=== PATIENT | female | born 1970 | race Caucasian/White ===

== ENCOUNTER 2019-12-16 23:26 | Emergency (ER) | payer MEDICAID, OTHER ==
[~2019-12-16] VITALS: Ht 157.5 cm; Wt 77.3 kg
[~2019-12-16 23:26] MED LIST: ALBU6.7H9 INH; DIAZ5TAB PO; IBUP-1984 PO; IBUP-1986 PO; PHEN-786 PO
[2019-12-16] MEDS ORDERED: ibuprofen tablet 400 MG TABLET PO ONE (23:40)
[2019-12-16] MEDS ORDERED: acetaminophen 325mg tablet PO ONE (23:40)
[2019-12-17 00:15] VITALS: BP 130/77
== END 2019-12-17 00:18 | disposition home or self-care (01) ==
LOC: ER 23:26
DX: J06.9 Acute upper respiratory infection, unspecified (principal); F17.200 Nicotine dependence, unspecified, uncomplicated; Z87.59 Personal history of other complications of pregnancy, childbirth and the puerperium; Z98.51 Tubal ligation status; Z79.899 Other long term (current) drug therapy
CPT/HCPCS: 71045; 93005; 99284

== ENCOUNTER 2020-05-04 12:35 | Emergency (ER) | payer MEDICAID ==
[~2020-05-04] VITALS: Ht 157.5 cm; Wt 77.3 kg
[2020-05-04 12:40] VITALS: BP 174/90
== END 2020-05-04 15:35 | disposition home or self-care (01) ==
LOC: ER 12:36
DX: M79.601 Pain in right arm (principal); M25.511 Pain in right shoulder; Z98.51 Tubal ligation status; Z98.890 Other specified postprocedural states; Z79.899 Other long term (current) drug therapy; W19.XXXA Unspecified fall, initial encounter; Y93.89 Activity, other specified; Y92.89 Other specified places as the place of occurrence of the external cause; Y99.8 Other external cause status
CPT/HCPCS: 73060; 73090; 99284

== ENCOUNTER 2022-02-26 09:16 | Inpatient (IN) | payer BC, MEDICAID ==
[~2022-02-26] VITALS: Ht 157.5 cm; Wt 72.7 kg
[2022-02-26] MEDS ORDERED: normal saline 1000ML IV soln IV ONE (09:50)
[2022-02-26] MEDS ORDERED: methylPREDNISolone sod succ 125mg/2ml vial IV ONE (09:50)
[2022-02-26] MEDS ORDERED: azithromycin/NS 500mg/250ml 250 ML IV ONE (09:50)
[2022-02-26] MEDS ORDERED: CefTRIAXone 2gm/NS 100ml IVPB 100 ML IV ONE (09:50)
[2022-02-26] MEDS ORDERED: ipratropium/albuterol 3ml nebule NEB ONE (09:50)
[2022-02-26] MEDS ORDERED: aspirin 81mg tab.chew PO ONE (09:50)
[2022-02-26 10:05] LABS: BASOPHILS % (AUTO) 0.4 % (0-1); EOSINOPHILS % (AUTO) 0.4 % (0-6); HEMATOCRIT 51.7 % (35.0-45.0); LYMPHOCYTES # (AUTO) 2.5 X10'3 (1.1-4.8); LYMPHOCYTES % (AUTO) 30.3 % (21-51); MEAN CORPUSCULAR HEMOGLOBIN 31.2 PG (27.0-31.0); MEAN CORPUSCULAR HGB CONC 35.1 g/dL (33.0-36.5); MEAN CORPUSCULAR VOLUME 88.8 FL (78-98); MEAN PLATELET VOLUME 7.5 FL (7.4-10.4); MONOCYTES # (AUTO) 0.5 X10'3 (0-0.9); MONOCYTES % (AUTO) 6.5 % (2-12); NEUTROPHILS # (AUTO) 5.2 X10'3 (1.8-7.7); NEUTROPHILS % (AUTO) 62.4 % (42-75); PLATELET COUNT 361 X10'3 (140-440); RED BLOOD COUNT 5.82 X10'6 (4.20-5.60); RED CELL DISTRIBUTION WIDTH 13.5 % (11.5-14.5); WHITE BLOOD COUNT 8.3 X10'3 (4.5-11.0)
[2022-02-26 10:06] LABS: HEMOGLOBIN 18.1 g/dl (12.0-16.0)
--- NOTE | 2022-02-26 10:17 | NUR ---
PATIENT IS HESITANT TO HAVE IV STARTED AND MEDICATIONS ORDERED PER PROVIDER. PATIENT STATES SHE DOES NOT THINK SHE NEEDS THESE MEDICATIONS AND DOES NOT BELIEVE THAT HER PROBLEM IS FROM COVID. PROVIDER WILL BE NOTIFIED OF PATIENT CONCERNS.
[2022-02-26 10:22] LABS: ALANINE AMINOTRANSFERASE 24 U/L (12-78); ALBUMIN 3.8 G/DL (3.4-5.0); ALBUMIN/GLOBULIN RATIO 1.1 (1.1-1.5); ALKALINE PHOSPHATASE 78 IU/L (46-116); ANION GAP 12 (8-16); ASPARTATE AMINO TRANSFERASE 24 U/L (10-37); BILIRUBIN,TOTAL 0.9 MG/DL (0.1-1.0); BLOOD UREA NITROGEN 15 MG/DL (7-18); BUN/CREATININE RATIO 20.5 (6.6-38.0); CHLORIDE 98 MMOL/L (99-107); CREATININE 0.73 MG/DL (0.40-0.90); GLUCOSE 108 MG/DL (70-104); POTASSIUM 3.9 MMOL/L (3.5-5.1); SODIUM 134 MMOL/L (135-145); TOTAL CARBON DIOXIDE 24.3 MMOL/L (24-32); TOTAL PROTEIN 7.3 G/DL (6.4-8.2); eGFR 84 ML/MIN
[2022-02-26] MEDS ORDERED: enoxaparin 100mg/ml syringe SUBCUT ONE (10:40)
[2022-02-26] MEDS ORDERED: nicotine 14mg patch - 24hr TD ONE (10:40)
[2022-02-26] MEDS ORDERED: LORazepam 1 MG tablet PO ONE (10:40)
[2022-02-26 10:46] LABS: D-DIMER 0.31 MG/L FEU (0-0.50)
[2022-02-26] MEDS ORDERED: ipratropium/albuterol 3ml nebule NEB PRN ×2 (11:05)
[2022-02-26] MEDS ORDERED: magnesium 4gm in 100ml NS 100 ML IV PRN (11:05)
[2022-02-26] MEDS ORDERED: acetaminophen 325mg tablet PO PRN (11:05)
[2022-02-26] MEDS ORDERED: POTASSIUM BICARB 20meq eff tab 20 MEQ TABLET.EFF PO PRN ×2 (11:05)
[2022-02-26] MEDS ORDERED: magnesium 2GM in 50ml NS 50 ML IV PRN (11:05)
[2022-02-26] MEDS ORDERED: magnesium Cl slow-release 64mg tablet PO PRN (11:05)
[2022-02-26] MEDS ORDERED: potassium CL 10mEq/100ml bag 100 ML IV PRN (11:05)
--- NOTE | 2022-02-26 11:20 | NUR ---
ATTEMPT TO START IV X 1 UNSUCCESSFUL. PATIENT IS VERY ANXIOUS AND NOT TOLERATING PROCEDURE WELL.
[2022-02-26 11:31] LABS: MAGNESIUM 1.9 MG/DL (1.5-2.4)
[2022-02-26] MEDS ORDERED: iohexol 350MG/ML 100ml bottle IV ONE (11:31)
[2022-02-26] MEDS ORDERED: LISI20TA28 PO (13:47)
[2022-02-26] MEDS ORDERED: HYDR25TA5 PO (13:47)
[2022-02-26] MEDS ORDERED: ALBU8.5H17 INH (13:49)
[2022-02-26] MEDS ORDERED: IBUP-1985 PO (13:53)
--- NOTE | 2022-02-26 14:34 | NUR ---
paged dr martin for trop level 95 ,which is trending down.
[2022-02-26] MEDS ORDERED: ALBUTEROL INHALER 1 PUFF/90 MCG INHALation IH PRN (15:15)
[2022-02-26] MEDS ORDERED: albuterol 2.5 MG/3 ML nebule NEB PRN (15:21)
--- NOTE | 2022-02-26 15:55 | NUR ---
Patient in room ED 6. I have received report from Sara DISLA and had the opportunity to ask questions and assume patient care.
[2022-02-26] MEDS: lisinopril 20mg tablet PO SCH (16:13)
--- NOTE | 2022-02-26 16:56 | NUR ---
patient very anxious Dr martin paged with regards anxiety meds.will continue to monitor
[2022-02-26 17:06] VITALS: BP 124/62
[2022-02-26] MEDS: ibuprofen 200mg tablet PO SCH (17:30)
[2022-02-26 18:00] VITALS: BP 135/71
--- NOTE | 2022-02-26 18:38 | NUR ---
Dr martin ordered anxiety meds. RT paged with regards tmt for patient. report given to Robert DISLA
[2022-02-26] MEDS: K and/or MAG REPLACEMENT MC SCH (18:58)
[2022-02-26] MEDS ORDERED: benzonatate 100mg capsule PO PRN (19:20)
--- NOTE | 2022-02-26 19:20 | NUR ---
Pt complained of cough, requested cough medication. Dr. Barrios paged and order for cough obtained.
[2022-02-26] MEDS: docusate sod 100mg capsule PO SCH (19:44)
[2022-02-26] MEDS: LORazepam 0.5 MG tablet PO PRN (19:46)
[2022-02-26] MEDS: heparin, porcine 5000 units/ml vial SQ SCH (19:49)
[2022-02-26 22:00] VITALS: BP 115/62
[2022-02-27 02:00] VITALS: BP 117/62
[2022-02-27] MEDS: HYDROcodone/acetaminophen 5mg/325mg tablet PO PRN ×2 (02:46→14:31)
[2022-02-27 06:00] VITALS: BP 144/78
[2022-02-27 06:23] LABS: BASOPHILS # (AUTO) 0.1 X10'3 (0-0.2); BASOPHILS % (AUTO) 0.6 % (0-1); EOSINOPHILS % (AUTO) 0 % (0-6); HEMATOCRIT 41.9 % (35.0-45.0); HEMOGLOBIN 14.8 g/dl (12.0-16.0); LYMPHOCYTES # (AUTO) 1.2 X10'3 (1.1-4.8); LYMPHOCYTES % (AUTO) 8.6 % (21-51); MEAN CORPUSCULAR HEMOGLOBIN 31.2 PG (27.0-31.0); MEAN CORPUSCULAR HGB CONC 35.3 g/dL (33.0-36.5); MEAN CORPUSCULAR VOLUME 88.3 FL (78-98); MEAN PLATELET VOLUME 8.2 FL (7.4-10.4); MONOCYTES # (AUTO) 0.4 X10'3 (0-0.9); NEUTROPHILS # (AUTO) 11.9 X10'3 (1.8-7.7); NEUTROPHILS % (AUTO) 87.8 % (42-75); PLATELET COUNT 338 X10'3 (140-440); RED BLOOD COUNT 4.74 X10'6 (4.20-5.60); RED CELL DISTRIBUTION WIDTH 13.2 % (11.5-14.5); WHITE BLOOD COUNT 13.6 X10'3 (4.5-11.0)
--- NOTE | 2022-02-27 06:31 | NUR ---
Patient in room PCU 3026. I have received report from Will RN and had the opportunity to ask questions and assume patient care.
[2022-02-27 07:28] LABS: ALBUMIN 3.1 G/DL (3.4-5.0); ANION GAP 8 (8-16); BLOOD UREA NITROGEN 15 MG/DL (7-18); BUN/CREATININE RATIO 20.5 (6.6-38.0); CALCIUM 8.5 MG/DL (8.5-10.1); CHLORIDE 105 MMOL/L (99-107); CREATININE 0.73 MG/DL (0.40-0.90); GLUCOSE 122 MG/DL (70-104); POTASSIUM 3.7 MMOL/L (3.5-5.1); SODIUM 137 MMOL/L (135-145); TOTAL CARBON DIOXIDE 24.1 MMOL/L (24-32); eGFR 84 ML/MIN
[2022-02-27] MEDS: K and/or MAG REPLACEMENT MC SCH ×2 (08:00→20:03)
[2022-02-27] MEDS: docusate sod 100mg capsule PO SCH ×2 (08:00→20:02)
[2022-02-27] MEDS: LORazepam 0.5 MG tablet PO PRN ×2 (08:34→20:02)
[2022-02-27] MEDS: ibuprofen 200mg tablet PO SCH ×3 (08:34→18:00)
[2022-02-27] MEDS: lisinopril 20mg tablet PO SCH (08:35)
[2022-02-27] MEDS: heparin, porcine 5000 units/ml vial SQ SCH (08:36)
[2022-02-27] MEDS ORDERED: PERFLUTREN PROTEIN-A MICROSPHR (Optison) 0.22 MG/ML 3ML VIAL IV ONE (08:55)
[2022-02-27] MEDS ORDERED: regadenoson 0.4mg/5ml syringe IV PRN (08:55)
[2022-02-27] MEDS ORDERED: nitroGLYCERIN 0.4mg SUBLingual tab SL PRN (08:55)
[2022-02-27] MEDS ORDERED: metoprolol tartrate 1mg/ml inj IV PRN (08:55)
[2022-02-27] MEDS ORDERED: aminophylline 250mg/10ml inj. IV PRN (08:55)
--- NOTE | 2022-02-27 09:19 | NUR ---
Malnutrition consult: Pt w/ recent Covid hx 2 weeks ago, reports a decrease in appetite since then per EMR. Current wt not scaled though wt hx fluctuates in EMR, going as low as 62kg in 2013. No signs of muscle or fat wasting observed at bedside. No edema noted and pt w/ normal muscle strength per documentation. Currently on heart Healthy diet pending PO intake. At this time, pt does not meet minimum criteria for malnutrition. Addendum: 02/27/22 at [address] Amended: Links added.
[2022-02-27 11:00] VITALS: BP 113/73
[2022-02-27] MEDS ORDERED: cefTRIAXone 1g/NS 100ml IVPB 100 ML IV ONE (13:35)
--- NOTE | 2022-02-27 13:35 | NUR ---
paged Dr kay with regards Aerobic bottle 02/26 left arm gram positive cocci in clusters
[2022-02-27 15:00] VITALS: BP 110/65
[2022-02-27 18:00] VITALS: BP 109/76
--- NOTE | 2022-02-27 18:53 | NUR ---
patient appears stable. Family visiting . Is for michael scan at 1400hrs tomorrow. report given to Robert DISLA
[2022-02-27] MEDS: enoxaparin 80mg/0.8ml syringe SUBCUT SCH (20:02)
[2022-02-28] VITALS (9 sets, daily range): BP systolic 130–149; BP diastolic 71–94
[2022-02-28 06:11] LABS: HEMOGLOBIN 14.4 g/dl (12.0-16.0); MEAN PLATELET VOLUME 8.1 FL (7.4-10.4); RED BLOOD COUNT 4.73 X10'6 (4.20-5.60)
[2022-02-28 06:14] LABS: BASOPHILS # (AUTO) 0.1 X10'3 (0-0.2); BASOPHILS % (AUTO) 0.8 % (0-1); EOSINOPHILS % (AUTO) 0.2 % (0-6); HEMATOCRIT 42.4 % (35.0-45.0); LYMPHOCYTES % (AUTO) 34.8 % (21-51); MEAN CORPUSCULAR HEMOGLOBIN 30.5 PG (27.0-31.0); MEAN CORPUSCULAR VOLUME 89.6 FL (78-98); MONOCYTES # (AUTO) 0.4 X10'3 (0-0.9); MONOCYTES % (AUTO) 4.7 % (2-12); NEUTROPHILS # (AUTO) 5.1 X10'3 (1.8-7.7); NEUTROPHILS % (AUTO) 59.5 % (42-75); PLATELET COUNT 304 X10'3 (140-440); RED CELL DISTRIBUTION WIDTH 13.7 % (11.5-14.5); WHITE BLOOD COUNT 8.6 X10'3 (4.5-11.0)
[2022-02-28 06:19] LABS: ALBUMIN 2.8 G/DL (3.4-5.0); ANION GAP 4 (8-16); BLOOD UREA NITROGEN 14 MG/DL (7-18); BUN/CREATININE RATIO 17.9 (6.6-38.0); CALCIUM 8.1 MG/DL (8.5-10.1); CHLORIDE 108 MMOL/L (99-107); CREATININE 0.78 MG/DL (0.40-0.90); GLUCOSE 80 MG/DL (70-104); POTASSIUM 3.7 MMOL/L (3.5-5.1); SODIUM 140 MMOL/L (135-145); TOTAL CARBON DIOXIDE 28.1 MMOL/L (24-32); eGFR 78 ML/MIN
[2022-02-28] MEDS: K and/or MAG REPLACEMENT MC SCH ×2 (08:00→20:00)
[2022-02-28] MEDS ORDERED: regadenoson 0.4mg/5ml syringe IV PRN (09:35)
[2022-02-28] MEDS ORDERED: metoprolol tartrate 1mg/ml inj IV PRN (09:35)
[2022-02-28] MEDS ORDERED: iohexol 350MG/ML 100ml bottle IV ONE (09:40)
[2022-02-28] MEDS ORDERED: nitroGLYCERIN 0.4mg SUBLingual tab SL PRN (09:40)
[2022-02-28] MEDS: ibuprofen 200mg tablet PO SCH ×3 (11:03→17:37)
[2022-02-28] MEDS: docusate sod 100mg capsule PO SCH ×2 (11:03→19:12)
[2022-02-28] MEDS: lisinopril 20mg tablet PO SCH (11:05)
[2022-02-28] MEDS: enoxaparin 80mg/0.8ml syringe SUBCUT SCH ×2 (11:07→19:12)
[2022-02-28] MEDS: cefTRIAXone 1g/NS 100ml IVPB 100 ML IV SCH (11:08)
[2022-02-28] MEDS: HYDROcodone/acetaminophen 5mg/325mg tablet PO PRN ×2 (11:22→19:11)
[2022-02-28] MEDS: LORazepam 0.5 MG tablet PO PRN (17:37)
[2022-03-01 06:00] VITALS: BP 130/83
--- NOTE | 2022-03-01 06:35 | NUR ---
Patient in room PCU 3026. I have received report from NIGHAT Morton and had the opportunity to ask questions and assume patient care.
[2022-03-01 06:45] LABS: BASOPHILS # (AUTO) 0.1 X10'3 (0-0.2); BASOPHILS % (AUTO) 1.1 % (0-1); EOSINOPHILS # (AUTO) 0.1 X10'3 (0-0.9); HEMATOCRIT 41.6 % (35.0-45.0); HEMOGLOBIN 14.3 g/dl (12.0-16.0); LYMPHOCYTES # (AUTO) 2.8 X10'3 (1.1-4.8); LYMPHOCYTES % (AUTO) 43.3 % (21-51); MEAN CORPUSCULAR HGB CONC 34.3 g/dL (33.0-36.5); MEAN CORPUSCULAR VOLUME 90.3 FL (78-98); MEAN PLATELET VOLUME 8.3 FL (7.4-10.4); MONOCYTES # (AUTO) 0.4 X10'3 (0-0.9); MONOCYTES % (AUTO) 6.1 % (2-12); NEUTROPHILS # (AUTO) 3.1 X10'3 (1.8-7.7); NEUTROPHILS % (AUTO) 48.5 % (42-75); PLATELET COUNT 307 X10'3 (140-440); RED BLOOD COUNT 4.61 X10'6 (4.20-5.60); RED CELL DISTRIBUTION WIDTH 13.3 % (11.5-14.5); WHITE BLOOD COUNT 6.5 X10'3 (4.5-11.0)
[2022-03-01 06:56] LABS: ALBUMIN 2.7 G/DL (3.4-5.0); ANION GAP 10 (8-16); BLOOD UREA NITROGEN 20 MG/DL (7-18); BUN/CREATININE RATIO 28.2 (6.6-38.0); CALCIUM 8.2 MG/DL (8.5-10.1); CHLORIDE 106 MMOL/L (99-107); CREATININE 0.71 MG/DL (0.40-0.90); GLUCOSE 74 MG/DL (70-104); SODIUM 145 MMOL/L (135-145); TOTAL CARBON DIOXIDE 28.6 MMOL/L (24-32); eGFR 86 ML/MIN
[2022-03-01] MEDS: ibuprofen 200mg tablet PO SCH ×2 (08:00→12:56)
[2022-03-01] MEDS: K and/or MAG REPLACEMENT MC SCH (08:00)
[2022-03-01 10:00] VITALS: BP 140/83
[2022-03-01 10:55] VITALS: BP_SYST 130
[2022-03-01] MEDS: lisinopril 20mg tablet PO SCH (10:55)
[2022-03-01] MEDS: cefTRIAXone 1g/NS 100ml IVPB 100 ML IV SCH (10:55)
[2022-03-01] MEDS: docusate sod 100mg capsule PO SCH (10:56)
[2022-03-01] MEDS: enoxaparin 80mg/0.8ml syringe SUBCUT SCH (10:56)
[2022-03-01] MEDS ORDERED: LORA-268 MT (10:59)
[2022-03-01] MEDS: LORazepam 0.5 MG tablet PO PRN (11:01)
[2022-03-01] MEDS: HYDROcodone/acetaminophen 5mg/325mg tablet PO PRN (11:02)
--- NOTE | 2022-03-01 13:15 | NUR ---
DC inst provided to pt. IV DC'd, tip intact. All belongings sent w/pt. WC to vehicle.
== END 2022-03-01 13:15 | disposition home or self-care (01) | DRG 281 ==
LOC: ER 09:16 → ED HOLD 11:09 → PCU 3S 15:50
PROVIDERS: ADMIT Internal Medicine; ATTEND Internal Medicine
PROC: B32T1ZZ Computerized Tomography (CT Scan) of Left Pulmonary Artery using Low Osmolar Contrast (ICD-10-PCS; 2022-02-26)
PROC: B3201ZZ Computerized Tomography (CT Scan) of Thoracic Aorta using Low Osmolar Contrast (ICD-10-PCS; 2022-02-26)
PROC: B32S1ZZ Computerized Tomography (CT Scan) of Right Pulmonary Artery using Low Osmolar Contrast (ICD-10-PCS; 2022-02-26)
PROC: 4A02XM4 Measurement of Cardiac Total Activity, External Approach (ICD-10-PCS; principal; 2022-02-28)
PROC: 3E033HZ Introduction of Radioactive Substance into Peripheral Vein, Percutaneous Approach (ICD-10-PCS; 2022-02-28)
DX: I21.4 Non-ST elevation (NSTEMI) myocardial infarction (principal); R78.81 Bacteremia; I10 Essential (primary) hypertension; J45.909 Unspecified asthma, uncomplicated; Z98.891 History of uterine scar from previous surgery; Z87.891 Personal history of nicotine dependence; Z98.51 Tubal ligation status; Z86.16 Personal history of COVID-19; Z79.899 Other long term (current) drug therapy; Z71.6 Tobacco abuse counseling
CPT/HCPCS: 36415; 71045; 71275; 78452; 80048; 80053; 83605; 83735; 83880; 84145; 84484; 85025; 85379; 87040; 87077; 87186; 93005; 93017; 93306; 94640; 94760; 97116; 97161; 97530; 99285; A9500; G0378; J0456; J0696; J1644; J1650; J2785; J2930; J7030; Q9967